=== PATIENT | female | born 1995 | race Hispanic/Latino ===

== ENCOUNTER 2021-05-21 12:47 | Emergency (ER) | payer OTHER, SELFPAY ==
[2021-05-21 12:57] VITALS: BP 132/86; PULSE 97; RESP 16; TEMP 37.1; O2SAT 100
--- NOTE | 2021-05-21 13:17 | ED.URI ---
HPI - URI/Sore Throat General Chief Complaint: Ear Stated Complaint: Ear Pain Time Seen by Provider: 05/21/21 13:06 Source: patient and RN notes reviewed Mode of arrival: ambulatory Limitations: no limitations History of Present Illness HPI Narrative: Patient presents today with a 3-day history of right ear pain, hoarseness, sore throat, body aches, and postnasal drip. Denies fever, cough, congestion, rhinorrhea. Currently rates her pain 5/10 and has been drinking herbal tea for symptoms without relief. She has not yet been vaccinated against COVID-19. MD elicited complaint: sore throat and other (Ear pain) Related Data Allergies Allergy/AdvReac Type Severity Reaction Status Date / Time amoxicillin Allergy Unknown Rash Verified 05/21/21 13:07 ciprofloxacin Allergy Unknown Unknown Verified 05/21/21 13:07 ioversol Allergy Unknown Unknown Verified 05/21/21 13:07 Review of Systems Review of Systems: Narrative: CONSTITUTIONAL: Denies fever, chills, or sweats. + Body aches?resolved EYES: Denies visual changes, redness, or discharge. ENT: Denies rhinorrhea, congestion. + Sore throat, right ear pain, postnasal drip CARDIOVASCULAR: Denies chest pain, palpitations, or edema. RESPIRATORY: Denies cough or dyspnea. GASTROINTESTINAL: Denies abdominal pain, nausea, vomiting, or diarrhea. GENITOURINARY: Denies dysuria or hematuria. SKIN: Denies rash, itching, or wounds. MUSCULOSKELETAL: Denies back pain, joint pain, or myalgia. NEUROLOGIC: Denies headache, numbness, tingling, or weakness. PSYCH: Denies depression or anxiety. [facility] Surgical History Surgical History (Updated 05/21/21 @ 13:18 by Katlin Bassett, YULIYA, ) Hx of tonsillectomy Family History Family History Grandparent Family history of lung cancer Diabetes mellitus Social History Social History Smoking status: Never smoker Alcohol intake: never Gender identity (if verbalized by the patient): Female Comments At time of signature, I have reviewed and agree with nursing past medical, surgical, social and family history unless otherwise noted. Please see nursing chart for further information. There is no relevant family history pertinent to the presenting complaint Exam Narrative: Exam Narrative: GENERAL: Well-appearing, well-nourished, and in no acute distress. HEAD: Normocephalic, atraumatic. EYES: EOMI. No redness or drainage. Conjunctivae normal. ENT: Mucous membranes pink and moist. Nares clear. No rhinorrhea. Left TM normal. Right TM erythematous and bulging with purulent material. Throat normal with clear postnasal drainage. Voice hoarse.. Uvula midline. NECK: Normal AROM. Supple. Left anterior cervical chain lymphadenopathy. CHEST: No respiratory distress. Clear to auscultation. HEART: Regular rate and rhythm. No murmur appreciated. Normal peripheral pulses. EXTREMITIES: Normal range of motion. No edema. SKIN: Warm, dry, no rash. Capillary refill normal. Normal skin turgor. NEURO: No focal deficits. Alert and oriented x3. Gait steady. PSYCH: Normal affect. No signs of depression or anxiety. Course Vital Signs Vital signs: Vital Signs Temperature 98.7 F 05/21/21 12:57 Pulse Rate 97 05/21/21 12:57 Respiratory Rate 16 05/21/21 12:57 Blood Pressure 132/86 05/21/21 12:57 Pulse Oximetry 100 05/21/21 12:57 Temperature 98.7 F 05/21/21 12:57 Pulse Rate 97 05/21/21 12:57 Respiratory Rate 16 05/21/21 12:57 Blood Pressure 132/86 05/21/21 12:57 Pulse Oximetry 100 05/21/21 12:57 Reviewed. Pt has been instructed to follow up with her PCP regarding her elevated blood pressure today. MDM - URI/Sore Throat Differential Diagnosis Differential diagnosis: Likely upper respiratory infection, otitis media, viral infection, pharyngitis and other (Strep throat) Lab Data Attestation: I reviewed the p
== END 2021-05-21 13:26 | disposition home or self-care (01) ==
PROVIDERS: Emergency Provider Nurse Practitioner
DX: H66.91 Otitis media, unspecified, right ear (principal); J04.0 Acute laryngitis
CPT/HCPCS: 87081; 87880; 99213; G0463